=== PATIENT | female | born 1950 | race Two or more races ===

== ENCOUNTER 2023-03-19 13:50 | Emergency (ER) | payer BC ==
[~2023-03-19] VITALS: Ht 149.9 cm; Wt 40.0 kg
[2023-03-19 13:58] VITALS: BP 149/65
[2023-03-19] MEDS ORDERED: VALA100031 PO (14:13)
== END 2023-03-19 14:34 | disposition home or self-care (01) ==
LOC: ER 13:51
DX: G51.0 Bell's palsy (principal)
CPT/HCPCS: 99283